=== PATIENT | female | born 1960 | race Caucasian/White ===

== ENCOUNTER 2017-03-21 06:08 | Inpatient (IN) | payer OTHER, MEDICARE ==
[~2017-03-21] VITALS: Ht 160 cm; Wt 99.3 kg
[~2017-03-21 06:08] MED LIST: ASPIR-LOW81 MG PO; BACTRIM DS TAB1 EACH PO; BREATHING TX; CARDIZEM; CARVEDILOL6.25 MG PO; LASIX 20 MG TAB20 MG PO; LEXAPRO 10 MG T10 M1 PO; LEXAPRO20 MG PO; LIPITOR 20 MG T20 M1 PO; LISINOPRIL-HCT1 EACH PO; LYRICA150 MG PO; NORCO 10-325 T1 EACH PO; NORCO 5-325 TA1 EACH PO; PERCOCET 5-3251 EACH PO; PRINIVIL; SPIRIVA; TRICOR145 MG PO; ZESTRIL20 MG PO
[2017-03-21 06:12] VITALS: BP 182/71
[2017-03-21] MEDS ORDERED: FENOFIBRATE200 MG PO (06:16)
[2017-03-21] MEDS ORDERED: PROZAC20 MG (06:17)
[2017-03-21] MEDS ORDERED: CRESTOR10 MG PO (06:18)
[2017-03-21] MEDS ORDERED: ABILIFY 5 MG TAB5 M1 (06:19)
[2017-03-21] MEDS ORDERED: PROTONIX40 M1 PO (06:20)
[2017-03-21] MEDS ORDERED: INDERAL LA160 M1 PO (06:21)
--- NOTE | 2017-03-21 06:24 | NUR ---
RT AT BEDSIDE
--- NOTE | 2017-03-21 06:46 | NUR ---
SECOND SET OF BLOOD CULTURES AND REMAINDER OF LABS DRAWN PER LAB TITLE DEPARTMENT MANAGER AT THIS TIME.
[2017-03-21 07:03] LABS: ABSOLUTE EOSINOPHILS 0.2 thou/uL (0.0-0.7); ABSOLUTE LYMPHOCYTES 1.3 thou/uL (0.8-5.3); ABSOLUTE MONOCYTES 0.5 thou/uL (0.0-1.2); ABSOLUTE NEUTROPHILS 2.2 thou/uL (1.6-8.1); BASOPHILS 0.9 %; EOSINOPHILS 3.8 %; HEMATOCRIT 41.1 % (37.0-47.0); HEMOGLOBIN 13.3 gm/dL (12.0-15.0); LYMPHOCYTES 30.4 %; MCH 29.7 pg (26.0-34.0); MCHC 32.4 g/dL (28.0-37.0); MCV 91.6 fL (80.0-100.0); MONOCYTES 12.8 %; MPV 8.8 fl. (7.2-11.1); NUCLEATED RBCS 0 /100WBC; PLATELET COUNT* 156 thou/uL (150-400); POLYS 52.1 %; RBC 4.49 mil/uL (4.20-5.00); RDW-CV 13.4 % (10.5-14.5); WBC 4.2 thou/uL (4.0-11.0)
[2017-03-21 07:11] LABS: ANION GAP 0 mmol/L (7-16); BUN 5 mg/dL (7-18); CALCIUM 8.1 mg/dL (8.5-10.1); CHLORIDE 101 mmol/L (98-107); CO2 42 mmol/L (21-32); CREATININE 0.7 mg/dL (0.6-1.3); GLUCOSE 102 mg/dL (70-99); POTASSIUM 3.7 mmol/L (3.5-5.1); SODIUM 143 mmol/L (136-145)
[2017-03-21 07:13] LABS: APTT 25.9 Seconds (25.0-31.3); INR 1.1; PROTIME 10.3 Seconds (9.20-11.50)
[2017-03-21 07:22] LABS: ALBUMIN 3.1 g/dL (3.4-5.0); ALKALINE PHOSPHATASE 45 U/L (46-116); LIPASE 112 U/L (73-393); MAGNESIUM 1.7 mg/dL (1.8-2.4); NT-PRO BRAIN NAT PEPTIDE 516 pg/mL (<300); SGOT 22 U/L (15-37); SGPT 32 U/L (30-65); TOTAL BILIRUBIN 0.4 mg/dL (<0.1-1.0); TOTAL PROTEIN 5.8 g/dL (6.4-8.2); TROPONIN-I LEVEL <0.06 ng/mL (<0.06)
[2017-03-21 07:50] VITALS: BP 158/68
[2017-03-21 08:00] VITALS: BP 120/42
--- NOTE | 2017-03-21 11:14 | EKG ---
[place] [address] ELECTROCARDIOGRAM REPORT Name: NORTHARUNA Room: [address] ADM IN M.R.#: [id number] Admission: 03/21/17 Attend Phys: Brandon Aguiar MD Discharge: Date of : 60 Report #: [id number] THIS REPORT FOR: //name// [facility] ED Test Date: 2017-03-21 Test Time: 06:21:21 Pat Name: ARUNA NORTH Department: Room: [facility] Gender: F Medical Administrator: MARY LOU : 1960 Requested By: Brian De La Garza Order Number: [id number] MD: Elie Boggs Measurements Intervals [place] Rate: 70 P: AR: QRS: 78 QRSD: 108 T: 53 QT: 431 QTc: 466 Interpretive Statements sinus rhythm Low voltage, precordial leads Minimal ST depression, inferior leads Baseline wander in lead(s) II,III,aVL,aVF,V1,V2 Compared to ECG 10/25/2013 20:16:47 Low QRS voltage now present First degree AV block no longer present ST (T wave) deviation still present Electronically Signed On 03-21-2017 11:14:17 SHIFT SUPERVISOR MELTING by Elie Boggs [email or web address] <ELECTRONICALLY SIGNED> By: Elie Boggs MD, FACC 03/21/17 1114 0 0 Elie Boggs MD, [facility] /EPI
[2017-03-21 11:30] VITALS: BP 119/40; BP 144/47
[2017-03-21 15:30] VITALS: BP 98/59
--- NOTE | 2017-03-21 15:32 | EKG ---
[place] [address] ELECTROCARDIOGRAM REPORT Name: DOUGIE NORTHSKYE Chappell Room: [address] ADM IN M.R.#: [id number] Admission: 03/21/17 Attend Phys: Brandon Aguiar MD Discharge: Date of : 60 Report #: [id number] THIS REPORT FOR: //name// [facility] ED Test Date: 2017-03-21 Test Time: 06:23:07 Pat Name: ARUNA NORTH Department: Room: [address] Gender: F Furnace Operator: MARY LOU : 1960 Requested By: Brian De La Garza Order Number: [id number] MD: Elie Boggs Measurements Intervals [place] Rate: 62 P: 67 SD: 191 QRS: 87 QRSD: 93 T: 77 QT: 423 QTc: 430 Interpretive Statements Sinus rhythm Baseline wander in lead(s) I,II,III,aVR,aVL,aVF,V2,V6 Electronically Signed On 03-21-2017 15:32:37 LINEN GRADER by Elie Boggs [email or web address] <ELECTRONICALLY SIGNED> By: Elie Boggs MD, [facility] 03/21/17 1532 2 Elie Boggs MD, [facility] /EPI
--- NOTE | 2017-03-21 18:39 | NUR ---
VSS, PT IS PROGRESSING TOWARDS GOAL, PT IS ON 4L NC AND UP WITH STAND BY, IS TRACING SR ON THE MONITOR AND STATES PAIN IN BACK, PT STATES IMPROVE BREATHING. AT THIS TIME NO OTHER STATUS CORTEZ AT THIS TIME, HOURLY ROUNDS COMPLETED.
[2017-03-21 20:20] VITALS: BP 124/70
[2017-03-22] VITALS (8 sets, daily range): BP systolic 117–168; BP diastolic 54–83
[2017-03-22 04:42] LABS: HEMATOCRIT 41.1 % (37.0-47.0); HEMOGLOBIN 13.3 gm/dL (12.0-15.0); MCH 29.6 pg (26.0-34.0); MCHC 32.4 g/dL (28.0-37.0); MCV 91.5 fL (80.0-100.0); MPV 8.8 fl. (7.2-11.1); RBC 4.48 mil/uL (4.20-5.00); RDW-CV 13.1 % (10.5-14.5); WBC 4.1 thou/uL (4.0-11.0)
[2017-03-22 04:52] LABS: CALCIUM 8.3 mg/dL (8.5-10.1); CREATININE 0.6 mg/dL (0.6-1.3); MAGNESIUM 1.9 mg/dL (1.8-2.4); POTASSIUM 3.8 mmol/L (3.5-5.1)
--- NOTE | 2017-03-22 04:55 | NUR ---
A&O X4, CALM COOPERITVE. SR-SB ON THE MONITOR. LUNGS ARE COARSE AND DIM. PT ON 4L O2 SAT 93, PT ON 4L AT HOME. PT HAS HAND TREMORS. DENIES PAIN AND SOA. STAND BY ASSIST. REPORTS BM YESTERDAY. VITALS WNL. FALL PRECAUITONS IN PLACE. HOURLY ROUNDING FOR SAFETY.
--- NOTE | 2017-03-22 08:05 | NUR ---
ASSUMED PT CARE 0730. PT RESTING. VSS. AFEBRILE. 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 NO APPARENT PAIN. 95% ON 3 03/25 L NC. WILL CONTINUE PLAN OF CARE.
--- NOTE | 2017-03-22 17:44 | NUR ---
PT C/O OF HAND AND LEG PAIN. PRN HYDROCODONE ADMINISTERED 2X'S THIS SHIFT. PT VOIDING PER BSC. VSS. AFEBRILE. SR.
[2017-03-23 04:23] VITALS: BP 127/56
--- NOTE | 2017-03-23 05:49 | NUR ---
ASSUMED CARE AT 1940, ASSESSMENT CHARTED. PATIENT ALERT/ORIENTED X4, RESTING IN BED. UP TO BSC. DENIES NEEDS. STATES HAVING PAIN ALL OVER, MEDS PER MAR WITH RELIEF NOTED. REFUSING SCD'S. CALL LIGHT WITHIN REACH, ENCOURAGED TO CALL FOR NEEDS.
[2017-03-23 07:45] VITALS: BP 142/64
[2017-03-23] MEDS ORDERED: PREDNISONE 10 M10 MG PO (11:31)
[2017-03-23] MEDS ORDERED: CEFUROXIME250 MG PO (11:31)
[2017-03-23 13:13] VITALS: BP 142/64
--- NOTE | 2017-04-11 20:10 | CON ---
[address] [address] CONSULTATION Name: NORTHARUNA J Room: [address] IN M.R.#: [id number] Admission: 03/21/17 Attend Phys: Brandon Aguiar MD Discharge: 03/23/17 Date of : 60 Report #: [id number] THIS REPORT FOR: //name// CC: [facility] physician/PCP Brandon Aguiar DATE OF SERVICE: 03/21/2017 HISTORY OF PRESENT ILLNESS: This is a 56-year-old female patient who was evaluated by me for tremor. The patient indicates that tremor started about 6 months ago spontaneously without any trauma. It is of moderate severity. She is still able to dress herself and able to take care of the activities of daily living without much problem. She does not know anything which makes this tremor better or worse. She does have a family history of Parkinson disease. REVIEW OF SYSTEMS: Indicate that she has a longstanding history of COPD. She also has a history of a spinal cord contusion. This happened a few years ago that left her with some difficulty with walking. REVIEW OF SYSTEMS: Indicate that she has some hypertension. She also indicates she had cholesterol problem. She denies that she has any new eye, ENT, cardiac, GI, , musculoskeletal, constitutional, dermatological, hematological, psychiatric, throat, allergic symptom associated with present symptomatology. Her biggest problem is respiratory symptom. PAST MEDICAL HISTORY: Positive for spinal cord contusion. FAMILY HISTORY: Negative for early age stroke, but appeared to be positive for Parkinson disease. SOCIAL HISTORY: She has a history of smoking, but does not drink alcohol on a regular basis. PHYSICAL EXAMINATION: Indicate that she is alert, responsive and oriented. She believes her speech, concentration, fund of knowledge and memory is at her baseline. Cranial nerve examination 2-12 was unremarkable. I could not look at the patient's fundus very well. There is no meningeal sign. She is somewhat weak in the lower extremity, but that is her baseline. Her reflexes are hyper in the lower extremity consistent with a cord contusion. Her tone looks unremarkable on both sides. Her position sense is present. There is not any cerebellar sign. She appeared to be well-developed individual who does not have any dysmorphic features of eyes, ears and face. Her vision and hearing looks adequate. Her pulses are palpable and she has no edema, cyanosis or jaundice. Her last blood pressure was 98/59, and respiration was 18, pulse is 62, temperature is 97.8. Her heart sounds looks unremarkable and she does not appear to have any murmur. She does have rhonchi, [place] [address] CONSULTATION Name: ARUNA NORTH Room: [address] IN M.R.#: [id number] Admission: 03/21/17 Attend Phys: Brandon Aguiar MD Discharge: 03/23/17 Date of : 60 Report #: [id number] with respiratory difficulty and she has moderate amount of respiratory difficulty. LABORATORY DATA: White count is 4.2 and her GFR is 87. She does have a tremor, which appeared to be a resting tremor and appeared to be consistent with the Parkinson disease rather than essential tremor. IMPRESSION: The patient's symptoms are suggestive of Parkinson disease. She is not having any activity restriction because of this tremor. I would like to do a DaTscan in this patient to confirm the diagnosis because she is pretty young. I will not start her on any medication at the moment until her sickness resolve and then she can follow up with us as an outpatient. RECOMMENDATIONS: 1. I discussed the situation with her and I suggested that she follow up with us as an outpatient. She wants to do that. I will do a TSH and vitamin B12 level in this patient, but as far as the management is concerned, I indicated that she should follow up as an outpatient with us and she wants to do that. I will check on the TSH and a CT and if that is okay, then I will not follow up during that admission, but will be happy to follow up as an outpatient. Thank you very much for this referral. <ELECTRONICALLY SIGNED> By: Tiago Stephenson MD 04/11/172009 [id number] 0201Pmart Stephenson MD /nt
== END 2017-03-23 14:18 | disposition home or self-care (01) | DRG 56 ==
LOC: M.ERS 06:08 → M.2W 06:32 → M.TBA-ER 06:32 → M.2W 08:23
PROVIDERS: Family Medicine; Internal Medicine; ADMIT Internal Medicine
DX: G20 Parkinson's disease (principal); J96.20 Acute and chronic respiratory failure, unspecified whether with hypoxia or hypercapnia; J44.1 Chronic obstructive pulmonary disease with (acute) exacerbation; I10 Essential (primary) hypertension; J44.9 Chronic obstructive pulmonary disease, unspecified; F17.210 Nicotine dependence, cigarettes, uncomplicated; G25.2 Other specified forms of tremor; G89.29 Other chronic pain; F32.9 Major depressive disorder, single episode, unspecified; F41.9 Anxiety disorder, unspecified; Z84.89 Family history of other specified conditions; Z90.710 Acquired absence of both cervix and uterus

== ENCOUNTER 2018-02-06 01:53 | Inpatient (IN) | payer OTHER, MEDICARE ==
[~2018-02-06] VITALS: Ht 160 cm; Wt 96.6 kg
[~2018-02-06 01:53] MED LIST changes: +ABILIFY 5 MG TAB5 M1; +CEFUROXIME250 MG PO; +CRESTOR10 MG PO; +FENOFIBRATE200 MG PO; +INDERAL LA160 M1 PO; +PREDNISONE 10 M10 MG PO; +PROTONIX40 M1 PO; +PROZAC20 MG
[2018-02-06 01:54] VITALS: BP 165/73
[2018-02-06 02:27] LABS: ABSOLUTE BASOPHILS 0.1 thou/uL (0.0-0.2); ABSOLUTE EOSINOPHILS 0.2 thou/uL (0.0-0.7); ABSOLUTE LYMPHOCYTES 3.8 thou/uL (0.8-5.3); ABSOLUTE MONOCYTES 0.7 thou/uL (0.0-1.2); ABSOLUTE NEUTROPHILS 5.9 thou/uL (1.6-8.1); BASOPHILS 0.7 %; EOSINOPHILS 2.2 %; HEMATOCRIT 41.5 % (37.0-47.0); HEMOGLOBIN 13.6 gm/dL (12.0-15.0); LYMPHOCYTES 35.6 %; MCHC 32.9 g/dL (28.0-37.0); MCV 88.2 fL (80.0-100.0); MONOCYTES 6.8 %; MPV 9.1 fl. (7.2-11.1); NUCLEATED RBCS 0 /100WBC; PLATELET COUNT* 195 thou/uL (150-400); POLYS 54.7 %; RDW-CV 14.3 % (10.5-14.5); WBC 10.8 thou/uL (4.0-11.0)
[2018-02-06 02:38] LABS: APTT 23.6 Seconds (25.0-31.3); PROTIME 10.2 Seconds (9.20-11.50)
[2018-02-06 02:41] LABS: ANION GAP 1 mmol/L (7-16); BUN 12 mg/dL (7-18); CALCIUM 8.6 mg/dL (8.5-10.1); CHLORIDE 96 mmol/L (98-107); CO2 43 mmol/L (21-32); CREATININE 0.7 mg/dL (0.6-1.3); GLUCOSE 124 mg/dL (70-99); POTASSIUM 3.8 mmol/L (3.5-5.1); SODIUM 140 mmol/L (136-145)
[2018-02-06 02:55] LABS: ALBUMIN 3.4 g/dL (3.4-5.0); ALKALINE PHOSPHATASE 62 U/L (46-116); LIPASE 196 U/L (73-393); MAGNESIUM 1.8 mg/dL (1.8-2.4); NT-PRO BRAIN NAT PEPTIDE 78 pg/mL (<300); SGOT 17 U/L (15-37); SGPT 34 U/L (30-65); TOTAL BILIRUBIN 0.4 mg/dL (<0.1-1.0); TOTAL PROTEIN 6.4 g/dL (6.4-8.2); TROPONIN-I LEVEL <0.06 ng/mL (<0.06)
[2018-02-06 03:25] VITALS: BP 132/51
[2018-02-06 04:16] VITALS: BP 132/48
[2018-02-06] MEDS ORDERED: VENTOLIN HFA 1818 GM (04:18)
[2018-02-06 07:55] VITALS: BP 121/48
[2018-02-06 09:47] LABS: BE 7.2 mmol/L (-2 to +3); HCO3 35.1 mmol/L (22.0-26.0); PCO2 64.2 mmHg (35.0-45.0); PO2 61.2 mmHg (75.0-100.0); pH 7.356 (7.340-7.450)
--- NOTE | 2018-02-06 12:28 | EKG ---
[place] [address] ELECTROCARDIOGRAM REPORT Name: NORTHARUNA Room: [address] ADM IN ..#: [id number] Admission: 02/06/18 Attend Phys: Brandon Aguiar MD Discharge: Date of : 60 Report #: [id number] THIS REPORT FOR: //name// [facility] ED Test Date: 2018-02-06 Test Time: 02:02:03 Pat Name: ARUNA NORTH Department: Room: [facility] Gender: F Architect Internship: : 1960 Requested By: Brian De La Garza Order Number: [id number] MD: Elie Boggs Measurements Intervals [place] Rate: 77 P: 69 SC: 187 QRS: 75 QRSD: 99 T: 67 QT: 398 QTc: 451 Interpretive Statements Sinus arrhythmia Baseline wander in lead(s) I,III,aVL Compared to ECG 03/21/2017 06:23:07 no change Electronically Signed On 02-06-2018 12:28:11 SQUIRREL MAN by Elie Boggs [email or web address] <ELECTRONICALLY SIGNED> By: Elie Boggs MD, [facility] 02/06/18 1228 0202 0202 Elie Boggs MD, [facility] /EPI
[2018-02-06 16:03] LABS: CALCIUM 8.9 mg/dL (8.5-10.1); CREATININE 0.9 mg/dL (0.6-1.3); POTASSIUM 4.1 mmol/L (3.5-5.1)
[2018-02-06 16:08] LABS: ALBUMIN 3.2 g/dL (3.4-5.0); TOTAL BILIRUBIN 0.4 mg/dL (<0.1-1.0); TOTAL PROTEIN 6.1 g/dL (6.4-8.2)
[2018-02-06 16:47] VITALS: BP 137/68
[2018-02-06 19:30] VITALS: BP 133/64
[2018-02-07 00:12] VITALS: BP 113/53
[2018-02-07 04:36] VITALS: BP 118/54
[2018-02-07 08:30] VITALS: BP 119/54
[2018-02-07] MEDS ORDERED: VENTOLIN HFA 1818 GM INH (10:56)
[2018-02-07] MEDS ORDERED: PREDNISONE 10 M10 MG PO (10:59)
[2018-02-07] MEDS ORDERED: CEFDINIR300 MG PO (11:00)
[2018-02-07 11:20] VITALS: BP 119/54
[2018-02-07 11:40] VITALS: BP 116/48
--- NOTE | 2018-02-08 08:05 | CON ---
[address] [address] CONSULTATION Name: ARUNA NORTH Room: [address] IN M.R.#: [id number] Admission: 02/06/18 Attend Phys: Brandon Aguiar MD Discharge: 02/07/18 Date of : 60 Report #: [id number] THIS REPORT FOR: //name// CC: Mikey Aguiar DATE OF SERVICE: 02/06/2018 REASON FOR CONSULTATION: COPD exacerbation and respiratory failure. HISTORY OF PRESENT ILLNESS: This is a 57-year-old female patient who unfortunately continues to smoke. She estimated she smoked 10 cigarettes per day. She has history of COPD, which seems to be advanced. I do not have her records from the office yet. She is on Trilogy at night and she is on 4 liters oxygen, 24/7 for the last 3 years. She told me she required Trilogy 3 months ago with her primary care doctor. She uses it most of the nights and seems to be helping, although in the last few weeks because of cough, she was not able to keep it the whole night. She reported couple of weeks ago, she started having symptoms of upper respiratory tract infection with cough, severe, mostly dry that is producing pain and because of the severe cough, she started having rib pain. She received a shot at her primary care office and given some sort of steroid taper and she felt temporary improvement; however, yesterday, her symptoms came back with increasing wheezes, cough. She denied any fever, chills, abdominal pain. She reports that she uses her inhalers at home, the nebulization treatments and that did not provide much relief and she had to present to the ER. When I saw her, she was able to speak in full sentences. In no obvious distress. She was on 4 liters oxygen. She denied any PNDs or orthopnea. She denied any lower extremity edema. HOME MEDICATIONS: She was on tapering dose of steroids. She is on pregabalin. She is on Coreg, hydrocodone, lisinopril, fluoxetine, albuterol nebulization treatment, albuterol inhaler. ALLERGIES: No known drug allergies. FAMILY HISTORY: Reviewed with the patient, none pertinent to the above chief complaint. SOCIAL HISTORY: She continues to smoke around 10 cigarettes per day, does not drink alcohol excessively, does not abuse drugs. PAST MEDICAL HISTORY: Positive for chronic respiratory failure, on home oxygen and Trilogy at night. She has COPD as mentioned above. She has neuropathy and hypertension. PAST SURGICAL HISTORY: [place] [address] CONSULTATION Name: ARUNA NORTH Room: [address]#: [id number] Admission: 02/06/18 Attend Phys: Brandon Aguiar MD Discharge: 02/07/18 Date of : 60 Report #: [id number] REVIEW OF SYSTEMS: GENERAL: She denied feeling fever or chills. EYES: She denied any visual changes, blurring of vision, lacrimation. ENT: She denied hearing loss, tinnitus. Currently, she has no sinus congestion or dysphagia or dysarthria. CARDIOVASCULAR: She denied any chest pain, but she has some rib pain. She denied palpitation. No history of PNDs or orthopnea. RESPIRATORY: As above. GASTROINTESTINAL: She has no nausea, no vomiting, no change in her bowel habits. GENITOURINARY: She denies any urgency, frequency of urination, burning sensation with urination. MUSCULOSKELETAL: She had no deformities. PSYCHIATRIC: She has no anxiety or depression. HEMATOLOGIC: No bruising, no bleeding, no lumps. SKIN: No rash. NEUROLOGIC: She has neuropathy and numbness in the lower extremities. The rest of the review system was negative. PHYSICAL EXAMINATION: VITAL SIGNS: She was receiving 4 liters oxygen, O2 saturation more than 90%, blood pressure 132/48, pulse rate of 68, sinus, temperature 36.3. GENERAL: The patient is sitting in bed. Speaks in full sentences, in no distress. HEENT: Head: Normocephalic, atraumatic. Eyes: Pupils reactive to light. Extraocular movements intact, not pale, no jaundice. Ears: External ears look healthy and normal. Oral cavity: Moist mucous membrane. Mallampati of 2. NECK: Supple. CHEST: Diminished air movement bilaterally, prolonged expiratory phase. No crackles. I did hear some wheezes bilaterally. No definite tenderness. HEART: S1, S2, no murmur. ABDOMEN: Benign, soft, lax, nontender, positive bowel sounds. EXTREMITIES: Lower extremities, no edema, no calf tenderness. NEUROLOGIC: Moving 4 extremities spontaneously. No focal weakness, some tremor was noted. PSYCHIATRIC: Mood and affect appropriate. Good insight and judgment. LYMPHATICS: No palpable lymph nodes. LABORATORY DATA: Her chest x-ray showed possible atelectasis in the left lung base. Her ABGs are pending. Her potassium is 3.8, sodium 140, creatinine 0.7. INR of 1. Platelets 195. IMPRESSION: 1. Acute [place] [address] CONSULTATION Name: ARUNA NORTH Room: [address] IN .R.#: [id number] Admission: 02/06/18 Attend Phys: Brandon Aguiar MD Discharge: 02/07/18 Date of : 60 Report #: [id number] 2. Chronic obstructive pulmonary disease exacerbation. 3. Pulmonary infiltrate. PLAN: At this point, I agree with antibiotics. She is on Rocephin. At this point, continue steroids, IV for now. I will increase the frequency of nebulization treatment. Mucinex would help with the secretions; however, given the acute bronchospasm, I would recommend avoiding hypertonic saline for now in order not to worsen the bronchospasm. We will follow along with you. Thank you for the consult. She needs a followup chest x-ray. <ELECTRONICALLY SIGNED> By: Noble Barros MD 02/08/18 0805 0941 [id number] Barros MD /nt
== END 2018-02-07 12:41 | disposition home or self-care (01) | DRG 189 ==
LOC: M.ERS 01:53 → M.3W 02:49 → M.TBA-ER 02:49 → M.3W 03:39
PROVIDERS: Family Medicine; Internal Medicine; ADMIT Internal Medicine
DX: J96.21 Acute and chronic respiratory failure with hypoxia (principal); J44.1 Chronic obstructive pulmonary disease with (acute) exacerbation; I10 Essential (primary) hypertension; F17.210 Nicotine dependence, cigarettes, uncomplicated; R25.1 Tremor, unspecified; G62.9 Polyneuropathy, unspecified; Z90.710 Acquired absence of both cervix and uterus; Z79.899 Other long term (current) drug therapy

== ENCOUNTER 2018-03-20 00:43 | Inpatient (IN) | payer OTHER, MEDICARE ==
[2018-03-20] VITALS (8 sets, daily range): BP systolic 131–177; BP diastolic 70–89
[~2018-03-20] VITALS: Ht 160 cm; Wt 95.7 kg
[~2018-03-20 00:43] MED LIST changes: -ABILIFY 5 MG TAB5 M1; +ABILIFY 5 MG TAB5 M1 PO; -BREATHING TX; +BREATHING TX INH; +CEFDINIR300 MG PO; -PROZAC20 MG; +PROZAC20 MG PO; +VENTOLIN HFA 1818 GM; +VENTOLIN HFA 1818 GM INH
[2018-03-20 01:37] LABS: ABSOLUTE EOSINOPHILS 0.1 thou/uL (0.0-0.7); ABSOLUTE MONOCYTES 0.7 thou/uL (0.0-1.2); ABSOLUTE NEUTROPHILS 6.6 thou/uL (1.6-8.1); BASOPHILS 0.4 %; EOSINOPHILS 1.3 %; HEMATOCRIT 40.6 % (37.0-47.0); HEMOGLOBIN 13.5 gm/dL (12.0-15.0); LYMPHOCYTES 28.6 %; MCH 29.8 pg (26.0-34.0); MCHC 33.2 g/dL (28.0-37.0); MCV 89.9 fL (80.0-100.0); MONOCYTES 6.5 %; MPV 8.4 fl. (7.2-11.1); NUCLEATED RBCS 0 /100WBC; PLATELET COUNT* 169 thou/uL (150-400); POLYS 63.2 %; RBC 4.51 mil/uL (4.20-5.00); RDW-CV 15.6 % (10.5-14.5); WBC 10.5 thou/uL (4.0-11.0)
[2018-03-20 01:53] LABS: CALCIUM 8.6 mg/dL (8.5-10.1); CREATININE 0.6 mg/dL (0.6-1.3); POTASSIUM 3.7 mmol/L (3.5-5.1)
[2018-03-20 01:57] LABS: ALBUMIN 3.1 g/dL (3.4-5.0); TOTAL BILIRUBIN 0.4 mg/dL (<0.1-1.0); TOTAL PROTEIN 5.9 g/dL (6.4-8.2)
[2018-03-20 01:58] LABS: BE 12.3 mmol/L (-2 to +3); PO2 66.5 mmHg (75.0-100.0); pH 7.337 (7.340-7.450)
[2018-03-20 02:01] LABS: HCO3 42.1 mmol/L (22.0-26.0); PCO2 80.3 mmHg (35.0-45.0)
--- NOTE | 2018-03-20 14:09 | EKG ---
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: COY : 1960 Requested By: Keira Blanchard Order Number: [id number] MD: Rashid Fitzgerald Measurements Intervals [place] Rate: 80 P: [place]: QRS: 115 QRSD: 109 T: 102 QT: 429 QTc: 495 Interpretive Statements Sinus rhythm Abnormal R-wave progression, late transition Artifact in lead(s) I,II,aVR,aVL,V4,V5 Compared to ECG 02/06/2018 02:02:03 artifact noted Electronically Signed On 03-20-2018 14:08:52 AERONAUTICAL ENGINEERING TEACHER by Rashid Fitzgerald [email or web address] <ELECTRONICALLY SIGNED> By: Rashid Fitzgerald MD, FACC 03/20/18 1408 0052 0052 Rashid Fitzgerald MD, FAC /EPI
[2018-03-21] VITALS: BP 130/84
[2018-03-21 04:00] VITALS: BP 155/73
[2018-03-21 04:51] LABS: HEMATOCRIT 36.7 % (37.0-47.0); MCH 29.5 pg (26.0-34.0); MCHC 32.8 g/dL (28.0-37.0); MCV 89.9 fL (80.0-100.0); RBC 4.08 mil/uL (4.20-5.00); RDW-CV 15.7 % (10.5-14.5); WBC 7.3 thou/uL (4.0-11.0)
[2018-03-21 05:04] LABS: ALBUMIN 2.8 g/dL (3.4-5.0); CALCIUM 8.7 mg/dL (8.5-10.1); CREATININE 0.5 mg/dL (0.6-1.3); MAGNESIUM 1.9 mg/dL (1.8-2.4); POTASSIUM 4.1 mmol/L (3.5-5.1); TOTAL BILIRUBIN 0.5 mg/dL (<0.1-1.0); TOTAL PROTEIN 5.1 g/dL (6.4-8.2)
[2018-03-21 08:00] VITALS: BP 116/49
[2018-03-21 12:00] VITALS: BP 123/59
[2018-03-21 16:00] VITALS: BP 129/52
[2018-03-21 20:11] VITALS: BP 131/46
[2018-03-22] VITALS: BP 135/56
[2018-03-22 04:00] VITALS: BP 125/55
[2018-03-22 05:23] LABS: MCH 29.4 pg (26.0-34.0); MCHC 32.5 g/dL (28.0-37.0); MCV 90.5 fL (80.0-100.0); MPV 9.3 fl. (7.2-11.1); RBC 4.43 mil/uL (4.20-5.00); RDW-CV 15.9 % (10.5-14.5); WBC 10.7 thou/uL (4.0-11.0)
[2018-03-22 05:51] LABS: ALBUMIN 2.8 g/dL (3.4-5.0); CALCIUM 8.3 mg/dL (8.5-10.1); CREATININE 0.7 mg/dL (0.6-1.3); POTASSIUM 3.6 mmol/L (3.5-5.1); TOTAL BILIRUBIN 0.5 mg/dL (<0.1-1.0); TOTAL PROTEIN 5.6 g/dL (6.4-8.2)
[2018-03-22 08:00] VITALS: BP 139/74
[2018-03-22 08:29] LABS: BE 8.2 mmol/L (-2 to +3); PO2 64.9 mmHg (75.0-100.0); pH 7.357 (7.340-7.450)
[2018-03-22 08:34] LABS: PCO2 65.6 mmHg (35.0-45.0)
--- NOTE | 2018-03-22 09:27 | CON ---
[address] [address] CONSULTATION Name: ARUNA NORTH Room: [place] [address] ADM IN M.R.#: [id number] Admission: 03/20/18 Attend Phys: Lydia العلي MD Discharge: Date of : 60 Report #: [id number] THIS REPORT FOR: //name// CC: Mikey Rodarte DO MD Lydia Mullins DATE OF SERVICE: 03/20/2018 ATTENDING PHYSICIAN: Camacho Knight MD. The patient is located on 03/20/2018 in room 233. INDICATION FOR CONSULTATION: Acute hypercarbic respiratory failure, severe COPD, dyspnea. CLINICAL SUMMARY: The patient is a 57-year-old female, current smoker, who 3 days prior to admission had increasing cough or shortness of breath. She has a long history of COPD, has been on oxygen at 4 liters, took like 1 or 2 albuterol breathing treatments at home, did not seem to help, had some cough with some scant clear sputum. Unfortunately, she has not been wearing her BiPAP or Trilogy machine at home. She over breathes the Trilogy machine, becomes anxious and then bucks again some machine and then does not use it, again still smoking half pack a day. She does not do use stairs. She can maybe walk 15-25 feet across the room. She denies any chest pain or peripheral edema. Still has significant tremor noted also. I was asked to see her. She has seen Dr. Duenas in the office, last time I believe is 10/2017. Also has a history of neuropathy and also hypertension. OUTPATIENT MEDICATIONS: Included albuterol nebulizer p.r.n. She takes them only once or twice a day. Was on a prednisone taper, last time was 02/07/2018 and then was also on cefdinir 300 mg b.i.d., also on 02/07/2018. She finished that after 7 days. OUTPATIENT MEDICATIONS: Other outpatient meds include Lyrica 150 mg b.i.d., fenofibrate 200 mg daily, carvedilol 6.25 mg b.i.d. for hypertension, atorvastatin 20 mg daily, lisinopril 20 mg daily for hypertension, fluoxetine, Prozac 40 mg daily, Abilify 5 mg daily. PAST SURGICAL HISTORY: She had a C4-C5 degeneration surgery with plates and screws, hysterectomy and also peripheral tremors. ALLERGIES: She has no known medical allergies. FAMILY HISTORY: Negative for premature [place] [address] CONSULTATION Name: ARUNA NORTH Room: [address] IN [facility]#: [id number] Admission: 03/20/18 Attend Phys: Lydia العلي MD Discharge: Date of : 60 Report #: [id number] SOCIAL HISTORY: Current every day smoker, about a half pack a day. Lives with her . She has a 35 to 40 pack year history of smoking. Denies any alcohol or illicit drug use. REVIEW OF SYSTEMS: A 14-point review of systems reviewed and negative except for pertinent positives noted in HPI. PHYSICAL EXAMINATION: GENERAL: A 57-year-old female, appears older than her stated age. She is obese, lying in bed, not moving very much. She is in no acute distress. VITAL SIGNS: Currently, her blood pressure is 137/73, heart rate 88, respirations 20, temperature is 37 degrees. She is 5 feet 4 inches tall, weight is 90 kilograms or 210 pounds, BMI is 35. HEENT: Unremarkable. She has a thick pharynx. Mucous membranes are moist. NECK: Thick with redundant neck tissue. No masses or adenopathy. CHEST: Reveals markedly diminished breath sounds with prolonged expiratory phase, few end expiratory wheezes. CARDIOVASCULAR: Regular rate and rhythm without murmur, gallop or rub. Heart rate is 90. ABDOMEN: Obese without masses or megaly. EXTREMITIES: No calf tenderness. No cyanosis, clubbing or edema. LABORATORY DATA: Hemoglobin is 13, white count is 10,500, normal differential, no eosinophilia noted. Sodium is 141, potassium is 3.7, bicarbonate is 41, BUN is 8, creatinine 0.6 and LFTs within normal limits. Albumin is 3.1. Blood gas drawn about 1:40 this morning on 4 liters shows a pO2 of 66, pH of 7.34, pCO2 is 80, bicarbonate is 42 and her carboxyhemoglobin was elevated at 10.2. Base excess was 12. Chest x-ray shows COPD and hyperinflation. PFTs from Dr. Duenas's old notes from 03/2016 shows an FEV1 of 1.1, which is 47% of predicted; FVC of 1.8, which is 65% of predicted; ratios 62% of predicted, but near the [id number] range. FEV1 is 47% of predicted, which puts her under gold level 3 range. She is hyperinflated with increased RV at 165% of predicted, decreased diffusion at about 40% of predicted. IMPRESSION: 1. Dyspnea and hypercarbia, multifactorial. 2. Moderately severe chronic obstructive pulmonary disease, gold level 3. Some reversibility on prior PFTs. 3. Chronic tobacco use. 4. Obesity and hypoventilation, may have obstructive sleep apnea and central sleep apnea with CO2 retention, Trilogy dependent. PLAN: Continue nebulizer treatments. I am not going to add any oral beta agonist since she has significant peripheral tremor at this time. We will check a blood gas in a day or two after she gets back on her Trilogy [place] [address] CONSULTATION Name: NORTHARUNA Room: [address] IN [facility].#: [id number] Admission: 03/20/18 Attend Phys: Lydia العلي MD Discharge: Date of : 60 Report #: [id number] get her CO2 levels down. Her carboxyhemoglobin level is quite elevated. I do not know if this is lab error, may try and repeat that. She is smoking 2 packs of cigarettes a day at home that make some sense. If not, we may have them checked out, make sure that no one else is sick in the house and that her heater is working well and have no carbon monoxide leak. She will follow up with Dr. Duenas in a month or two and may have to talk to her about code and ventilator status, make sure she has advanced directives, etc. She needs to wear her Trilogy every night and I stressed this to her and her or she will an early from respiratory acidosis. We will continue other current meds and she will need several days of therapy here at [facility]. Thanks again for allowing us to participate in this lady's care. This has been a 35-minute critical care consult. <ELECTRONICALLY SIGNED> By: Alfred Reed MD 03/22/18 0927 1823 [id number] Reed MD /nt
[2018-03-22 12:48] VITALS: BP 122/47
[2018-03-22 16:01] VITALS: BP 127/53
[2018-03-22 18:45] LABS: AMP/METHAMP Negative (Negative); BARBITURATES Negative (Negative); BENZODIAZEPINES Negative (Negative); COCAINE Negative (Negative); METHADONE Negative (Negative); OPIATES Negative (Negative); PCP Negative (Negative); THC Negative (Negative)
[2018-03-22 19:15] VITALS: BP 121/95
[2018-03-23] VITALS: BP 134/65
[2018-03-23 04:00] VITALS: BP 140/53
[2018-03-23 04:44] LABS: HEMOGLOBIN 11.8 gm/dL (12.0-15.0); MCH 29.6 pg (26.0-34.0); MCHC 32.9 g/dL (28.0-37.0); MPV 9.1 fl. (7.2-11.1); RDW-CV 15.7 % (10.5-14.5); WBC 6.7 thou/uL (4.0-11.0)
[2018-03-23 05:31] LABS: CALCIUM 8.3 mg/dL (8.5-10.1); CREATININE 0.6 mg/dL (0.6-1.3); MAGNESIUM 2.1 mg/dL (1.8-2.4); POTASSIUM 4.1 mmol/L (3.5-5.1)
[2018-03-23 08:00] VITALS: BP 163/73
[2018-03-23] MEDS ORDERED: PULMICORT0.5 MG/2 M INH (09:26)
[2018-03-23] MEDS ORDERED: AZITHROMYCIN 2250 MG PO (09:26)
[2018-03-23] MEDS ORDERED: SINGULAIR 10 MG10 M1 PO (09:26)
[2018-03-23] MEDS ORDERED: PREDNISONE 10 M10 MG PO (09:26)
[2018-03-23 11:27] VITALS: BP 163/73
[2018-03-23 12:04] VITALS: BP 147/70
== END 2018-03-23 13:00 | disposition home health service (06) | DRG 189 ==
LOC: M.ERS 00:43 → M.2W 02:13 → M.TBA-ER 02:13 → M.2W 02:51
PROVIDERS: Family Medicine; Internal Medicine; Internal Medicine Pulmonary Disease; Personal Emergency Response Attendant; ADMIT Family Medicine
PROC: 5A09357 Assistance with Respiratory Ventilation, Less than 24 Consecutive Hours, Continuous Positive Airway Pressure (ICD-10-PCS; principal; 2018-03-20)
PROC: 5A09357 Assistance with Respiratory Ventilation, Less than 24 Consecutive Hours, Continuous Positive Airway Pressure (ICD-10-PCS; 2018-03-21)
PROC: 5A09357 Assistance with Respiratory Ventilation, Less than 24 Consecutive Hours, Continuous Positive Airway Pressure (ICD-10-PCS; 2018-03-22)
PROC: 5A09357 Assistance with Respiratory Ventilation, Less than 24 Consecutive Hours, Continuous Positive Airway Pressure (ICD-10-PCS; 2018-03-23)
DX: J96.21 Acute and chronic respiratory failure with hypoxia (principal); R65.11 Systemic inflammatory response syndrome (SIRS) of non-infectious origin with acute organ dysfunction; J44.1 Chronic obstructive pulmonary disease with (acute) exacerbation; J96.22 Acute and chronic respiratory failure with hypercapnia; F17.210 Nicotine dependence, cigarettes, uncomplicated; J20.8 Acute bronchitis due to other specified organisms; E66.01 Morbid (severe) obesity due to excess calories; M50.321 Other cervical disc degeneration at C4-C5 level; F32.9 Major depressive disorder, single episode, unspecified; G47.33 Obstructive sleep apnea (adult) (pediatric); F41.9 Anxiety disorder, unspecified; R73.9 Hyperglycemia, unspecified; I10 Essential (primary) hypertension; G62.9 Polyneuropathy, unspecified; Z99.81 Dependence on supplemental oxygen; Z90.710 Acquired absence of both cervix and uterus; Z79.899 Other long term (current) drug therapy; Z68.37 Body mass index [BMI] 37.0-37.9, adult

== ENCOUNTER → 2018-12-29 | Outpatient (CLI) | payer OTHER, MEDICARE ==
[~2018-12-29] MED LIST changes: +AZITHROMYCIN 2250 MG PO; +PULMICORT0.5 MG/2 M INH; +SINGULAIR 10 MG10 M1 PO
[2018-12-29 09:37] LABS: BE 4.5 mmol/L (-2 to +3); PO2 85.3 mmHg (75.0-100.0); pH 7.334 (7.340-7.450)
[2018-12-29 09:43] LABS: PCO2 61.3 mmHg (35.0-45.0)
== END ==
LOC: M.PUL 09:06
PROVIDERS: Internal Medicine Pulmonary Disease
DX: J44.9 Chronic obstructive pulmonary disease, unspecified (principal)

== ENCOUNTER 2020-03-10 16:49 | Emergency (ER) | payer OTHER, MEDICARE ==
[~2020-03-10] VITALS: Ht 157.5 cm; Wt 99.8 kg
[2020-03-10 16:55] VITALS: BP 152/80
== END 2020-03-10 17:53 | disposition home or self-care (01) ==
LOC: M.ERS 16:49
DX: Z20.828 Contact with and (suspected) exposure to other viral communicable diseases (principal); I10 Essential (primary) hypertension; J44.9 Chronic obstructive pulmonary disease, unspecified; F17.210 Nicotine dependence, cigarettes, uncomplicated; Z90.710 Acquired absence of both cervix and uterus

== ENCOUNTER 2020-09-17 18:24 | Emergency (ER) | payer OTHER, MEDICARE ==
[~2020-09-17] VITALS: Ht 157.5 cm; Wt 104.3 kg
[2020-09-17 19:36] VITALS: BP 97/39
== END 2020-09-17 19:37 | disposition home or self-care (01) ==
LOC: M.ERS 18:24
DX: R60.0 Localized edema (principal); M25.562 Pain in left knee; I10 Essential (primary) hypertension; J44.9 Chronic obstructive pulmonary disease, unspecified; F17.210 Nicotine dependence, cigarettes, uncomplicated; Z90.710 Acquired absence of both cervix and uterus